=== PATIENT | male | born 1955 | race Caucasian/White ===

== ENCOUNTER 2018-08-08 23:26 | Inpatient (IN) | payer SELFPAY ==
[2018-08-08 23:27] VITALS: BP 174/96; PULSE 108; RESP 24; TEMP 38.3; O2SAT 93; BMI 33.0
--- NOTE | 2018-08-08 23:29 | ED.RN ---
NO OLD EKGS IN MUSE
[2018-08-08 23:30] VITALS: PULSE 104; RESP 24
[2018-08-08 23:38] VITALS: O2SAT 93
--- NOTE | 2018-08-08 23:41 | EKG12_ITS ---
Test Reason : CP Blood Pressure : / mmHG Vent. Rate : 100 BPM Atrial Rate : 100 BPM P-R Int : 138 ms QRS Dur : 088 ms QT Int : 378 ms P-R-T Axes : 048 004 048 degrees QTc Int : 487 ms Sinus rhythm with Premature supraventricular complexes and with occasional and consecutive Premature ventricular complexes Prolonged QT Abnormal ECG Confirmed by ADRIANA BHANDARI, ALMA DELIA ([id number]), acquisitions editor LEONCIO NAVARRO ([id number]) on 08/12/2018 3:29:47 PM Referred By: CLINT Confirmed By:ALMA DELIA WRIGHT MD
--- NOTE | 2018-08-08 23:41 | RAD_ITS ---
STUDY: X-RAY CHEST REASON FOR EXAM: Male, 63 years old. Left-sided chest and back pain TECHNIQUE: Single frontal view of the chest. COMPARISON: None. FINDINGS: The lungs are clear and expanded. There is no demonstrated pleural abnormality. Prominent cardiac silhouette. Normal mediastinum and graciela. Normal visualized pulmonary arteries. Normal visualized aortic arch and descending thoracic aorta. There are diffuse degenerative changes of the visualized thoracic spine. Normal visualized ribs, clavicles, and shoulders. There is no demonstrated abnormality of the visualized soft tissue structures of the upper abdomen. RAD/Chest 1 View (Portable) IMPRESSION: No acute pulmonary findings. Electronically Signed: Raghav Luther MD at 0:22 EST Tel , Service support ,
[2018-08-08] MEDS: Acetaminophen 500 MG Tablet 1000 MG PO (23:46)
[2018-08-08] MEDS: 0.9% Normal Saline 1,000 ML 150 ML IV (23:50)
--- NOTE | 2018-08-08 23:57 | ED.VISSUMM ---
- ER Visit Summary Date of Service: 08/08/18 Chief Complaint: Chest pain and shortness of breath History of Present Illness: The patient is a 63 M with a 2-3-week history of chest pain and shortness of breath on exertion. Patient states he initially had right lower chest pain. He currently has left lower chest pain. He does describe shortness of breath that is worse with exertion. He states he gets a buildup of phlegm that causes occasional cough. He had intermittent fevers. He states overall he is not felt well over the past 2-3 months. Physical Examination: Blood pressure is 174/96, temperature 100.9, heart rate 104, respiratory rate 24, pulse ox 93% on room air. Head neck examination is grossly unremarkable. Heart is regular rate and rhythm. Lung sounds are diminished at the bases, but no wheezes or rhonchi are noted. Abdomen is soft nontender. Strong peripheral pulses are noted throughout. Test Results: EKG is sinus at 100 with occasional PVCs. No acute ST change. Portable chest x-ray is read as no acute pulmonary findings. CBC was a white count 11.5. Chemistry studies unremarkable. Troponin negative. Lactic acid normal at 1.3. Blood cultures were sent. Patient was sent for CTA of the chest of her my read does reveal large bilateral PEs, left greater than right. It does appear that he has some fluid at the left lung base which appears darker than I would expect for typical pleural effusion. My concern his he may have some hemorrhage from his clots. Emergency Department Course and Treatment: She was given Tylenol and IV fluids. Due to continued pain he did receive a dose of morphine and Zofran. Test results were discussed with the patient. He is currently on 2 L nasal cannula after coming back from CT with an O2 sat of 88%. Patient be started on heparin bolus and drip so that it can be turned off if he does develop hemoptysis. Hospitalist is on page. Treatment Plan: [] Disposition: Admit Impression: Bilateral pulmonary emboli This note was generated with [id number] dictation software. It may contain incorrect words, spelling, and punctuation that were not noted in review of the chart prior to signing ED Disposition - Plan for ED Patient: Chief Complaint: Chest Pain Referrals: Care Physician,No Primary [Primary Care Provider] -
[2018-08-09] VITALS (20 sets, daily range): BP systolic 119–165; BP diastolic 72–96; PULSE 56–94; RESP 16–22; TEMP 36.5–37.4; O2SAT 92–97; BMI 33.0
[2018-08-09 00:08] LABS: Absolute Lymphocyte Count 2.33 X10^3/ul (0.83-4.51); Absolute Neutrophil Count 7.9 X10^3/uL (2.0-7.7); Basophil# 0.02 X10^3/uL; Basophil% 0.2 % (0-1); Eosinophil# 0.17 X10^3/uL; Eosinophils% 1.5 % (0-5); Hematocrit 41.3 % (40-54); Hemoglobin 13.6 g/dl (13.0-16.5); Lymphocyte # 2.33 X10^3/ul (4.0); Lymphocyte % 20.2 % (19-41); Mean Corp Hgb Conc 32.9 g/gl (32-36); Mean Corpuscular Hgb 29.8 pg (27.0-32.0); Mean Corpuscular Volume 90.4 fL (80-94); Mean Platelet Vol. 9.7 fl (6.2-12.0); Monocyte# 1.07 X10^3/uL; Monocyte% 9.3 % (0-10); Neutrophil # 7.86 X10^3/uL (2.7-7.7); Neutrophil % 68.3 % (47-70); Platelet Count 190 K/mm3 (150-450); RBC Distribution Width CV 12.6 % (11.6-14.6); RBC Distribution Width SD 41.1 fl (35.1-43.9); Red Blood Count 4.57 M/mm3 (4.6-6.2); White Blood Count 11.5 K/mm3 (4.4-11.0)
[2018-08-09 00:09] LABS: POSITIVE COUNT NO; POSITIVE DIFFERENTIAL NO; POSITIVE MORPHOLOGY NO
[2018-08-09 00:27] LABS: Anion Gap 9 (5-15); BUN 17 mg/dL (7-18); BUN/Creat Ratio 13.7 RATIO (10-20); Calcium,Total 8.6 mg/dL (8.5-10.1); Chloride 101 mmol/L (98-107); Creatinine, Serum 1.24 mg/dL (0.70-1.30); EST Glomerular Filtration Rate 62 mL/min (>60); Est Glom Filt Rate - Afr Amer 75 mL/min (>60); Estimated Creatinine Clearance 62.14 ml/min; Glucose 115 mg/dL (74-106); Potassium 3.9 mmol/L (3.5-5.1); Sodium Level 135 mmol/L (136-145)
--- NOTE | 2018-08-09 00:35 | CT_ITS ---
STUDY: CTA CHEST REASON FOR EXAM: Male, 63 years old. SOB and chest pain RADIATION DOSAGE (If Supplied By Facility): CTDIvol = ( 16.72 ) mGy, DLP = ( 683.81 ) mGycm TECHNIQUE: The examination was performed with the intravenous administration of 100 ml of Isovue 370 contrast material. Post-processing of the angiographic images was performed, with multiplanar reformation and 3D reconstruction. Individualized dose optimization techniques were used for this CT. COMPARISON: None. FINDINGS: Extensive bilateral pulmonary emboli are present. A saddle embolus is present as well. Prominence of the right atrium suggests some right heart strain. Normal thoracic aorta and visualized great vessels. There is no demonstrated aortic dissection. Normal heart and pericardium. Normal mediastinum. Normal hilar regions. Normal visualized trachea and bronchi. Calcified pulmonary granulomata. Left lower lobe alveolar disease and atelectasis. Evolving left lower lobe pulmonary infarct is not excluded. Left pleural effusion. Normal chest wall structures. There are degenerative changes of thoracic spine. Normal visualized upper abdomen. CT/CTA Chest W/WO Contrast IMPRESSION: Extensive bilateral pulmonary emboli are present. A saddle embolus is present as well. Prominence of the right atrium suggests some right heart strain. Left lower lobe alveolar disease and atelectasis. Evolving left lower lobe pulmonary infarct is not excluded. N.B. : The above information has been verbally conveyed by Raghav Luther MD to Salena Sifuentes MD, on 08/09/2018 02:05:33 (ET). Electronically Signed: Raghav Luther MD at 1:59 EST Tel , Service support ,
[2018-08-09] MEDS: Ondansetron 4 MG/2 ML Vial IV (00:46)
[2018-08-09] MEDS: Morphine 4 MG/ML Syringe IV (00:46)
[2018-08-09 00:56] LABS: Lactic Acid 1.3 mmol/L (0.4-2.0)
--- NOTE | 2018-08-09 01:17 | HP.PCM_ITS ---
Problem List (1) Bilateral pulmonary embolism Status: Acute (2) Elevated BP without diagnosis of hypertension Status: Acute History of Present Illness Date of Admission: 08/09/18 Chief Complaint: CHEST PAIN The patient is a 63 year old M former smoker who presented with 2 weeks history of chest pain. His chest pain started at the right side and it resolved with ibuprofen. A few days later after resolution of his right-sided chest pain he began to have left-sided chest pain. His left-sided chest pain is located under his left breast. He reported that initially he had some relief with ibuprofen but now he is not having adequate relief from the ibuprofen. He describes his pain as episodic and sharp. His pain is nonradiating. His pain can go as high as 9 to 10 on a scale of 1 to 10. His pain is increased with exertion. Associated with his symptoms of shortness of breath that increases with exertion. He reports a productive cough of clear, orange and reddish brown sputum. He thinks that his sputum might contain blood. Also reported subjective fever; diaphoresis; chills and night sweats. At emergency department while he was walking his oxygen saturation dropped to 88% for which reason he was started on oxygen per nasal cannula. At the the emergency department patient had a fever of 100.9. He had mild leukocytosis, tachycardia; tachypnea and elevated blood pressure. At emergency department CT of his chest showed bilateral PE with left sided pleural effusion. Patient denies any long time immobility; family history of blood clots; personal history of blood clot; malignancy; long distance travel; or any recent surgery. Past Medical History Past Medical History (Chronic Problems): Chronic Problems (Last Updated 08/09/18 @ 02:59 by Coy Kee MD) No previous medical history (Chronic) Medical History: Medical History (Last Updated 08/09/18 @ 02:59 by Coy Kee MD) No previous medical history (Chronic) Allergies No Known Allergies Allergy (Verified 08/08/18 23:29) Home Medications: Ambulatory Orders Medication Instructions Recorded Ibuprofen [Advil] 200 mg PO Q4H PRN PRN 08/08/18 Surgical History: - - He reported that a cyst was removed from his back. Lives: Alone Smoking Status: Former smoker - Reportedly he quit a month ago. Alcohol: Occasional - *Family History Maternal Family History: Family History (Last Updated 08/09/18 @ 03:01 by Coy Kee MD) Father Heart disease Review of Systems Constitutional: Reports: Chills, Fever. Denies: Weight Change HEENT: Denies: Head Aches, Sinus Congestion, Sinus Drainage Cardiovascular: Reports: Chest Pain. Denies: Palpitations Respiratory: Reports: Cough, Shortness of Breath, Sputum production Gastrointestinal: Denies: Abdominal Pain, Nausea, Vomiting Genitourinary: Denies: Dysuria Musculoskeletal: Reports: Leg Pain - cramp in right leg, chronic.. Denies: Joint Pain, Joint Tenderness Skin: Denies: Rash, Wounds Neurological: Denies: Numbness, Tingling, Focal weakness Psychiatric: Denies: Anxiety, Depression, Homicidal Ideations, Suicidal Ideations Hematologic/ Lymphatic: Denies: Easy Bruising, Easy Bleeding VTE Information - Inpt Only VTE Present on Admission: Yes VTE Mechan Device Prophylaxis: None VTE Pharm Prophylaxis ordered?: No Reason prophylaxis not ordered:: Treatment Not Indicated - Receiving treatment dose of heparin for PE. Patient Problems: Active and Suspected Problems (Last Updated 08/09/18 @ 02:59 by Coy Kee MD) Bilateral pulmonary embolism (Acute) Bilateral pulmonary embolism (Acute) Elevated BP without diagnosis of hypertension (Acute) - Physical Exam General: Alert, Oriented x3, Cooperative HEENT: Atraumatic, PERRLA, EOMI, Normocephalic Neck: Supple, No JVD, Negative Carotid Bruits Lungs: Clear to auscultation, Normal air movement, Tachypneic, - - Tender left chest. Cardiovascular: No murmurs, Tachycardic Abdomen: Bowel Sounds Present, Soft, Non Tender Extremities: No edema, Capillary Refill Less than 3 Seconds Skin: No rashes, No breakdown Musculoskeletal: No Tenderness to Palpation of Joints or Extremities Lymphatic: No Cervical, Supraclavicular, or Inguinal Adenopathy Neurological: Neuro grossly intact Psych/Mental Status: Normal Affect, Appropriate Vital Signs Temp Pulse Resp BP Pulse Ox 99.0 F 85 21 H 142/73 H 95 08/09/18 01:09 08/09/18 01:09 08/09/18 01:09 08/09/18 01:09 08/09/18 01:09 Oxygen Flow Rate (L/min) 2 Oxygen Delivery Method Nasal Cannula Weight: 104.3 kg Body Mass Index (BMI) 33.0 Laboratory Tests Past 24 Hrs 08/08/18 08/08/18 08/08/18 23:37 23:37 23:37 WBC 11.5 H RBC 4.57 L Hgb 13.6 Hct 41.3 MCV 90.4 MCH 29.8 MCHC 32.9 RDW 12.6 RDW Differential 41.1 Plt Count 190 MPV 9.7 Immature Gran % (Auto) 0.500 Neut % (Auto) 68.3 Lymph % (Auto) 20.2 [place] % (Auto) 9.3 Eos % (Auto) 1.5 Baso % (Auto) 0.2 Absolute Neuts (auto) 7.9 H Absolute Lymphs (auto) 2.33 Total Counted Not Reportable APTT Sodium 135 L Potassium 3.9 Chloride 101 Carbon Dioxide 25.0 Anion Gap 9 BUN 17 Creatinine 1.24 Estim Creat Clear Calc 62.14 Est GFR (MDRD) Af Amer 75 Est GFR (MDRD) Non-Af 62 BUN/Creatinine Ratio 13.7 Glucose 115 H Lactic Acid 1.3 Calcium 8.6 Troponin I < 0.015 08/08/18 23:37 WBC RBC Hgb Hct MCV MCH MCHC RDW RDW Differential Plt Count MPV Immature Gran % (Auto) Neut % (Auto) Lymph % (Auto) [place] % (Auto) Eos % (Auto) Baso % (Auto) Absolute Neuts (auto) Absolute Lymphs (auto) Total Counted APTT Pending Sodium Potassium Chloride Carbon Dioxide Anion Gap BUN Creatinine Estim Creat Clear Calc Est GFR (MDRD) Af Amer Est GFR (MDRD) Non-Af BUN/Creatinine Ratio Glucose Lactic Acid Calcium Troponin I Assessment/Plan All Active Problems (Last Updated 08/09/18 @ 02:59 by Coy Kee MD) Bilateral pulmonary embolism (Acute) Bilateral pulmonary embolism (Acute) Elevated BP without diagnosis of hypertension (Acute) The patient is a 63-year old gentleman previously healthy who presented with a 2-week history of chest pain and shortness of breath and found to have radiographic evidence of bilateral PE Acute submassive bilateral PE. Patient with radiographic evidence of: extensive bilateral pulmonary emboli are present. A saddle embolus is present as well. Prominence of the right atrium suggests some right heart strain. Left lower lobe alveolar disease and atelectasis. Evolving left lower lobe pulmonary infarct is not excluded. I independently review CT of the chest and agree with radiologist interpretation. Because of the pleural effusion which may be blood oral anticoagulation was not started at emergency department. Patient received heparin bolus and drip. We will continue heparin drip. Tylenol as needed for fever and pain. Oxycodone as needed for pain. Will order echocardiogram and bilateral venous Doppler. His chest pain is pleuritic likely from the PE. However will do cardiac enzymes to rule out coronary artery disease. Left pleural effusion Likely from PE. Cannot exclude hemothorax. Management of PE as above. SIRS Patient meets SIRS criteria with a temperature of more than 100.4; heart rate of more than 90 and respiratory rate of more than 20. He has SIRS likely because of the acute bilateral PE Vitals per unit routine. Neutrophilic Leukocytosis Likely due to Acute bilateral PE Management as above Trend CBC Elevated blood pressure without diagnosis of hypertension. His blood pressure at presentation at the ED was 174/96. However this has been trending down. His blood pressure was likely secondary to pain and anxiety. As needed pain medicine ordered. Treatment of PE as above. Will trend blood pressures. Labetalol as needed for systolic blood pressure more than 160. Tobacco abuse He reports quitting smoking about a month ago. He reported that smoking was aggravating his shortness of breath. However he re ported that his shortness of breath and chest pain started 2 weeks ago making his statement incongruent. Counselled Euvolemic hyponatremia Mild. 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 DVT prophylaxis Not indicated in the setting of patient with acute bilateral PE who has received heparin bolus, currently on heparin drip. Code Visit Inpatient E&M: 10389 Init Hosp L3
[2018-08-09] MEDS: HEPARIN/D5w 25,000 UNITS 25,000 UNITS/250 ML IV.SOLN. 15 UNITS IV (01:28)
[2018-08-09] MEDS: Heparin Injection (Vial) 5,000 UNIT/ML VIAL 8000 UNIT IV (01:28)
--- NOTE | 2018-08-09 02:07 | VDLE_ITS ---
Reason For Study: PE RIGHT LEFT GSV is normal. GSV is normal. CFV is compressible, spontaneous, phasic, CFV is compressible, spontaneous, phasic, competent and demonstrates normal competent, and demonstrates normal augmentation. augmentation. FV is non-compressible with intraluminal FV is compressible, spontaneous, phasic, echoes. competent and demonstrates normal POP V is compressible, spontaneous, phasic, augmentation. competent and demonstrates normal POP V is compressible, spontaneous, phasic, augmentation. competent and demonstrates normal T/P Trunk is compressible. augmentation. PTV is compressible. T/P Trunk is compressible. RT PerV is compressible. PTV is compressible. Procedure LT PerV is compressible. Exam performed portable in patient room. A preliminary report was called and/or faxed to U Charge nurse. Interpretation Summary No evidence for acute deep venous thrombosis bilateral lower extremities with patent and compressible bilateral great saphenous veins. Ordering Physician: Coy Kee Performed By: Avril Todd RVT
--- NOTE | 2018-08-09 02:07 | ECHOCS_ITS ---
Reason For Study: Emboli Procedure This was a 2D Doppler, Color Flow transthoracic echocardiogram. The study was technically difficult. Contrast injection was performed. Exam performed portable in patient room. Left Ventricle Normal LV size. Left ventricular systolic function is normal. The estimated ejection fraction is 65 %. Diastolic function is indeterminate. No regional wall motion abnormalities noted. Right Ventricle Normal RV size. Normal systolic function. Atria The left atrium is mildly enlarged. Normal right atrium. No doppler evidence for ASD. Mitral Valve There is no mitral annular calcification. Normal mitral valve. Trivial mitral valve insufficiency. Tricuspid Valve Normal tricuspid valve. Trivial tricuspid valve insufficiency. Right ventricular systolic pressure estimated to be 41 mmHg. Aortic Valve Trisinus/trileaflet aortic valve. Normal aortic valve. Pulmonic Valve The pulmonic valve is not well visualized. Great Vessels Normal sized aortic root. Pericardium/Pleural No pericardial effusion. Medication Definity0.2ml given slow IV push to enhance endocardial definition. MMode/2D Measurements & Calculations LVIDd: 5.0 cm IVSd: 1.2 cm Ao root diam: 3.3 cm LVIDs: 3.3 cm LVPWd: 1.3 cm RVDd: 4.2 cm FS: 33.0 % LAV(MOD-bp): 65.1 ml LVAd ap4: 33.6 cm2 SV(MOD-sp4): 65.0 ml LAV(MOD-bp) Indexed: 29.4 ml/m2 EDV(MOD-sp4): 109.4 ml LAV(MOD-sp2): 72.9 ml EDV(sp4-el): 114.9 ml LAV(MOD-sp4): 58.1 ml LVAs ap4: 18.4 cm2 ESV(MOD-sp4): 44.5 ml ESV(sp4-el): 42.3 ml EF(MOD-sp4): 59.4 % EF(sp4-el): 63.1 % SV(sp4-el): 72.5 ml LA A4 area: 21.2 cm2 LA dimension(2D): 4.2 cm RA A4 area: 16.3 cm2 Doppler Measurements & Calculations MV E max rick: 57.1 cm/sec Lat Peak E' Rick: 8.3 cm/sec Med Peak E' Rick: 7.9 cm/sec MV A max rick: 73.2 cm/sec E/E' lat: 6.9 E/E' med: 7.3 MV E/A: 0.78 Ao V2 max: 163.6 cm/sec LV V1 max: 121.4 cm/sec PA V2 max: 78.3 cm/sec Ao max P.7 mmHg LV V1 max P.9 mmHg Ao V2 mean: 116.7 cm/sec Ao mean P.0 mmHg Ao V2 VTI: 31.2 cm TR max rick: 287.1 cm/sec TR max P.0 mmHg Interpretation Summary The study was technically difficult. Contrast injection was performed. Left ventricular systolic function is normal. The estimated ejection fraction is 65 %. The left atrium is mildly enlarged. Trivial mitral valve insufficiency. Trivial tricuspid valve insufficiency. Right ventricular systolic pressure estimated to be 41 mmHg. Diastolic function is indeterminate. Ordering Physician: Coy Kee Performed By: Milka Nelson, LUC, RVT
[2018-08-09 06:46] LABS: Hematocrit 36.6 % (40-54); Hemoglobin 11.9 g/dl (13.0-16.5); Mean Corp Hgb Conc 32.5 g/gl (32-36); Mean Corpuscular Hgb 29.4 pg (27.0-32.0); Mean Corpuscular Volume 90.4 fL (80-94); Mean Platelet Vol. 9.6 fl (6.2-12.0); Platelet Count 181 K/mm3 (150-450); RBC Distribution Width CV 12.7 % (11.6-14.6); RBC Distribution Width SD 42.2 fl (35.1-43.9); Red Blood Count 4.05 M/mm3 (4.6-6.2); White Blood Count 10.1 K/mm3 (4.4-11.0)
[2018-08-09 07:01] LABS: Scan Indicated on CBC? Y/N NO
[2018-08-09 07:06] LABS: Anion Gap 8 (5-15); BUN 18 mg/dL (7-18); BUN/Creat Ratio 16.2 RATIO (10-20); Calcium,Total 8.2 mg/dL (8.5-10.1); Chloride 105 mmol/L (98-107); Creatinine, Serum 1.11 mg/dL (0.70-1.30); EST Glomerular Filtration Rate 71 mL/min (>60); Est Glom Filt Rate - Afr Amer 86 mL/min (>60); Estimated Creatinine Clearance 69.42 ml/min; Glucose 111 mg/dL (74-106); Potassium 4.1 mmol/L (3.5-5.1); Sodium Level 138 mmol/L (136-145)
[2018-08-09 08:06] LABS: Partial Thromboplast Time 117.2 Seconds (24.1-36.2)
--- NOTE | 2018-08-09 12:14 | PCM.PROGNOTE ---
Patient Problems: Active and Suspected Problems (Last Updated 08/09/18 @ 02:59 by Coy Kee MD) Bilateral pulmonary embolism (Acute) Bilateral pulmonary embolism (Acute) Elevated BP without diagnosis of hypertension (Acute) Subjective: Patient is a 63-year-old male with no significant medical history but was until recently a smoker who presented to the emergency department at [facility] on 08/09/2018 complaining of chest pain of 2 weeks duration. Walking oximetry in the emergency room on room air was 88%. Temp was 100.9 and he had a mild leukocytosis and tachycardia. CTA of the chest showed bilateral pulmonary emboli with saddle embolus and with left-sided pleural effusion. He has no risk factors. He was admitted to a monitored bed on PCU and started on a heparin infusion. He does not have a PCP and has not saeen a doctor in years. There is a FH of prostate CA in his paternal uncle. Last colonoscopy was 9 years ago and it was normal per the patient. Has nocturia at least 3 times a night. Denies hematuria. No FH of clotting disorders. no recent unexplained weight loss All events of the past 24 hours of been reviewed Current vital signs are temp 98.3, pulse rate 61, blood pressure 130/72, 94-95% on room air. All lab was personally reviewed. Serial cardiac enzymes are negative. BMP is unremarkable. He is c/o GARCIA and pain in the left lateral chest when he is moving around. He has hemoptysis today - Physical Exam General: Alert, Oriented x3, Cooperative, Well developed, Well nourished HEENT: Atraumatic, PERRLA, EOMI Neck: No JVD, Negative Carotid Bruits Lungs: Clear to auscultation Cardiovascular: Regular Rhythm, Normal S1, Normal S2, No Gallop, Tachycardic Abdomen: Bowel Sounds Present, Soft, Non Tender, Non-Distended Extremities: No edema, No Calf Tenderness Skin: No rashes, No breakdown Neurological: Cranial nerves II-XII grossly intact, Neuro grossly intact Psych/Mental Status: Normal Affect, Appropriate Vital Signs Temp Pulse Resp BP Pulse Ox 98.3 F 80 18 130/72 H 94 08/09/18 10:20 08/09/18 11:00 08/09/18 11:25 08/09/18 10:20 08/09/18 11:27 Oxygen Flow Rate (L/min) 2 Oxygen Delivery Method Room Air Weight: 229 lb 15.074 oz Body Mass Index (BMI) 33.0 Intake and Output for Last 24 Hours 08/07/18 08/08/18 08/09/18 23:59 23:59 23:59 Intake Total 80.9 / 80.9 Balance 80.9 / 80.9 Laboratory Tests Past 24 Hrs 08/08/18 08/08/18 08/08/18 23:37 23:37 23:37 WBC 11.5 H RBC 4.57 L Hgb 13.6 Hct 41.3 MCV 90.4 MCH 29.8 MCHC 32.9 RDW 12.6 RDW Differential 41.1 Plt Count 190 MPV 9.7 Immature Gran % (Auto) 0.500 Neut % (Auto) 68.3 Lymph % (Auto) 20.2 [place] % (Auto) 9.3 Eos % (Auto) 1.5 Baso % (Auto) 0.2 Absolute Neuts (auto) 7.9 H Absolute Lymphs (auto) 2.33 Total Counted Not Reportable APTT Sodium 135 L Potassium 3.9 Chloride 101 Carbon Dioxide 25.0 Anion Gap 9 BUN 17 Creatinine 1.24 Estim Creat Clear Calc 62.14 Est GFR (MDRD) Af Amer 75 Est GFR (MDRD) Non-Af 62 BUN/Creatinine Ratio 13.7 Glucose 115 H Lactic Acid 1.3 Calcium 8.6 Troponin I < 0.015 08/08/18 08/09/18 08/09/18 23:37 02:35 05:37 WBC RBC Hgb Hct MCV MCH MCHC RDW RDW Differential Plt Count MPV Immature Gran % (Auto) Neut % (Auto) Lymph % (Auto) [place] % (Auto) Eos % (Auto) Baso % (Auto) Absolute Neuts (auto) Absolute Lymphs (auto) Total Counted APTT 36.0 Sodium 138 Potassium 4.1 Chloride 105 Carbon Dioxide 25.0 Anion Gap 8 BUN 18 Creatinine 1.11 Estim Creat Clear Calc 69.42 Est GFR (MDRD) Af Amer 86 Est GFR (MDRD) Non-Af 71 BUN/Creatinine Ratio 16.2 Glucose 111 H Lactic Acid Calcium 8.2 L Troponin I < 0.015 08/09/18 08/09/18 08/09/18 05:37 05:37 07:28 WBC 10.1 RBC 4.05 L Hgb 11.9 L Hct 36.6 L MCV 90.4 MCH 29.4 MCHC 32.5 RDW 12.7 RDW Differential 42.2 Plt Count 181 MPV 9.6 Immature Gran % (Auto) Neut % (Auto) Lymph % (Auto) [place] % (Auto) Eos % (Auto) Baso % (Auto) Absolute Neuts (auto) Absolute Lymphs (auto) Total Counted APTT 117.2 H* Sodium Potassium Chloride Carbon Dioxide Anion Gap BUN Creatinine Estim Creat Clear Calc Est GFR (MDRD) Af Amer Est GFR (MDRD) Non-Af BUN/Creatinine Ratio Glucose Lactic Acid Calcium Troponin I < 0.015 Medical Necessity - Tobacco Use Smoking Status: Former smoker - Reportedly he quit a month ago. Assessment/Plan All Active Problems (Last Updated 08/09/18 @ 02:59 by Coy Kee MD) Bilateral pulmonary embolism (Acute) Bilateral pulmonary embolism (Acute) Elevated BP without diagnosis of hypertension (Acute) Impressions 1. Bilateral extensive pulmonary emboli with saddle embolus and probable pulmonary infarction-acquired hypercoagulable disorder? Possible occult malignancy? Has not had routine follow-up with a doctor in many years. Positive family history of prostate cancer and he has nocturia times at least 3. 2. Hypertension at admission and blood pressures today look good and he has not had any as needed labetalol. 3. Marijuana use - one puff on a one hitter daily 4. Left pleural effusion with left lower lobe alveolar disease. Venous ultrasounds of bilateral lower extremities in the a.m. Continue heparin drip for now -I did explain the different options for oral anticoagulants and answered his questions If stable in the AM consider transitioning to ELiquis or Xarelto Check a PSA. No masses on the chest CTA or the plain CXR I did discuss with him the possibility of an occult malignancy. I also explained that he will need to follow up with pulmonary post DC ECO tomorrow to evaluate Right heart function
[2018-08-09 14:34] LABS: Partial Thromboplast Time 52.2 Seconds (24.1-36.2)
[2018-08-09 14:46] LABS: AST(SGOT) 14 U/L (15-37); Alanine Aminotransfer ALT/SGPT 27 U/L (16-61); Albumin, Serum 2.7 g/dL (3.2-5.0); Alkaline Phosphatase 103 U/L (45-117); Bilirubin, Direct 0.21 mg/dL (0.00-0.30); Globulin 4.5 g/dL (2.2-4.2); Protein, Total 7.2 g/dL (6.4-8.2)
[2018-08-09] MEDS: Heparin Injection (Vial) 5,000 UNIT/ML VIAL IV ×2 (14:46→21:28)
[2018-08-09] MEDS: Acetaminophen 325 MG Tablet 650 MG PO (18:01)
[2018-08-09 21:00] LABS: Partial Thromboplast Time 49.4 Seconds (24.1-36.2)
[2018-08-09] MEDS: HEPARIN/D5w 25,000 UNITS 25,000 UNITS/250 ML IV.SOLN. 14 UNITS IV (21:29)
[2018-08-09] MEDS: Zolpidem Tartrate 5 MG Tablet PO (21:32)
[2018-08-10] VITALS (7 sets, daily range): BP systolic 122–134; BP diastolic 78–79; PULSE 61–79; RESP 16–17; TEMP 36.7–37.7; O2SAT 93–97
[2018-08-10 03:53] LABS: Partial Thromboplast Time 52.6 Seconds (24.1-36.2)
[2018-08-10] MEDS: Heparin Injection (Vial) 5,000 UNIT/ML VIAL IV (04:31)
--- NOTE | 2018-08-10 09:10 | CASEMGMT ---
KAYLYNN GRECO Assessment. Presentation: Pt presented to ER with shortness of breath. CT showed extensive bilateral pulmonary emboli. Started on Heparin gtt. Introduced role of CM to patient in room. He is able to participate in assessment. PCP: none. Discussed with pt who plans to start care with Dr. Kathy Taylor, , [place], [place]. KAYLYNN GRECO let pt know we would give him information re: financial assistance/cost from office. Specialists: none Preferred Pharmacy: [facility] [place], [place] Insurance: none. Pt states he is eligible for [facility] in summer this year. No insurance coverage at this time. Prescription Benefit: none LNOK: BrotherChris Living Arrangements: Lives independently. Transportation: Drives DME/HHC: none SW consult: self pay status. Financial, possible pharmacy assist. DC PLAN: Home. Plan is to transition from Heparin gtt to Eliquis or Xarelto. Savings card can be given, and pt may need pharmacy assist for medications. Erin HENSONN RN ACM
--- NOTE | 2018-08-10 09:48 | CASEMGMT ---
Addendum entered by Priscila Leal 08/10/18 10:01: SAM spoke with [facility] which is where patient would like to get his care. They do offer financial assistance for patients who qualify. They can also get a discount of 30% if they pay day of visit. She will fax SW the financial assistance application. SW will give this information to patient. Priscila RIGGS Original Note: SW spoke with patient as he is self pay. SW gave him information on [facility] and [facility]. SW also gave him information on [employer] and [facility]. Patient would like to establish care at [place]. SW will check to see if they offer financial assistance for self pay patients. Priscila RIGGS
[2018-08-10 11:02] LABS: Partial Thromboplast Time 60.8 Seconds (24.1-36.2)
--- NOTE | 2018-08-10 11:22 | CASEMGMT ---
Patient will be discharged on Eliquis. SW will likely utilize [facility] prescription assistance program for patient. SAM called [facility] and scheduled an appt for patient for WednesdayAug 19 at 11:30am. This will allow him to get a physician to assist with prescription assistance application for the Eliquis for later months. SAM will notify patient. Priscila RIGGS
--- NOTE | 2018-08-10 14:26 | PCM.PN.HOSP ---
Patient Problems: Active and Suspected Problems (Last Updated 08/09/18 @ 02:59 by Coy Kee MD) Bilateral pulmonary embolism (Acute) Bilateral pulmonary embolism (Acute) Elevated BP without diagnosis of hypertension (Acute) Subjective: no chest pain. no shortness of breath. symptoms seemed to have accelerated over the past month. no prior episode of VTE. Vitals/I&O's: Vital Signs Temp Pulse Resp BP Pulse Ox 36.9 C 73 16 132/78 H 97 08/10/18 14:17 08/10/18 14:17 08/10/18 14:17 08/10/18 14:17 08/10/18 14:17 Oxygen Flow Rate (L/min) 2 Oxygen Delivery Method Room Air Weight: 104.3 kg Body Mass Index (BMI) 33.0 Intake and Output for Last 24 Hours 08/08/18 08/09/18 08/10/18 23:59 23:59 23:59 Intake Total 1321.0 / 1321.0 783 / 783 Balance 1321.0 / 1321.0 783 / 783 General: Alert, Cooperative, No apparent distress HEENT: Atraumatic, Normocephalic Oral: Moist Mucosa, No Gingival or Mucosal Lesions/ Ulcerations Neck: No Nodes, Thyroid Normal Size and Texture Lungs: Clear to auscultation, Normal air movement, No rhonchi, No wheeze Cardiovascular: Regular rate, Regular Rhythm, Normal S1, Normal S2 Abdomen: Bowel Sounds Present, Soft, Non Tender, Non-Distended, No Hepato-splenomegaly Extremities: No Calf Tenderness, Edema - trace Skin: No rashes, No breakdown Psych/Mental Status: Normal Affect, Appropriate Laboratory Results 08/09/18 14:00: Total Bilirubin 0.50, Direct Bilirubin 0.21, AST 14 L, ALT 27, Alkaline Phosphatase 103, Total Protein 7.2, Albumin 2.7 L, Globulin 4.5 H 08/09/18 14:10: APTT 52.2 H 08/09/18 20:45: APTT 49.4 H 08/10/18 03:34: APTT 52.6 H 08/10/18 10:43: APTT 60.8 H Current Medications Acetaminophen (Tylenol) 650 mg PO Q6H PRN PRN PRN Reason: Mild Pain (scale 0-3)/T>100.7 Last Admin: 08/09/18 18:01 Dose: 650 mg Heparin Sodium (Porcine) (Heparin Na) 0 unit IV UD PRN; Protocol Last Admin: 08/10/18 04:31 Dose: 1,000 unit Heparin Sodium/Dextrose () 25,000 units in 250 mls @ 15 mls/hr IV .[id number] [facility]; Protocol Last Admin: 08/09/18 21:29 Dose: 14 mls/hr Labetalol HCl (Trandate) 10 mg IV Q4H PRN PRN PRN Reason: SBP > 160 Magnesium Hydroxide (Milk Of Magnesia) 30 ml PO DAILY PRN PRN Reason: Constipation Ondansetron HCl (Zofran) 4 mg IV Q8H PRN PRN PRN Reason: NAUSEA Oxycodone HCl (Oxyir) 5 mg PO Q4H PRN PRN PRN Reason: Moderate Pain (pain scale 4-5) Senna/Docusate Sodium (Senokot-S, Wendi-Colace) 1 tablet PO BID [facility] Last Admin: 08/10/18 10:13 Dose: Not Given Sodium Chloride () 5 - 15 ml IV UD PRN PRN Reason: SALINE FLUSH Zolpidem Tartrate (Ambien (Generic)) 5 mg PO QHS PRN PRN PRN Reason: INSOMNIA Last Admin: 08/09/18 21:32 Dose: 5 mg Medical Necessity - Tobacco Use Smoking Status: Former smoker - Reportedly he quit a month ago. Assessment/Plan All Active Problems (Last Updated 08/09/18 @ 02:59 by Coy Kee MD) Bilateral pulmonary embolism (Acute) Bilateral pulmonary embolism (Acute) Elevated BP without diagnosis of hypertension (Acute) 1. PE bilateral w saddle embolism discussed NOACs v coumadin. He agrees to Eliquis Onset may have been a month ago (possibly provoked after sitting in a tree stand for hunting) treat at least 6 months recommend follow up with Hematology in the months to come follow up echo 2. DVT RLE as above. Code Visit Inpatient E&M: 33681 Subs Hosp L2
--- NOTE | 2018-08-10 14:29 | PN_ITS ---
Patient Problems: Active and Suspected Problems (Last Updated 08/09/18 @ 02:59 by Coy Kee MD) Bilateral pulmonary embolism (Acute) Bilateral pulmonary embolism (Acute) Elevated BP without diagnosis of hypertension (Acute) Subjective: no chest pain. no shortness of breath. symptoms seemed to have accelerated over the past month. no prior episode of VTE. Vitals/I&O's: Vital Signs Temp Pulse Resp BP Pulse Ox 36.9 C 73 16 132/78 H 97 08/10/18 14:17 08/10/18 14:17 08/10/18 14:17 08/10/18 14:17 08/10/18 14:17 Oxygen Flow Rate (L/min) 2 Oxygen Delivery Method Room Air Weight: 104.3 kg Body Mass Index (BMI) 33.0 Intake and Output for Last 24 Hours 08/08/18 08/09/18 08/10/18 23:59 23:59 23:59 Intake Total 1321.0 / 1321.0 783 / 783 Balance 1321.0 / 1321.0 783 / 783 General: Alert, Cooperative, No apparent distress HEENT: Atraumatic, Normocephalic Oral: Moist Mucosa, No Gingival or Mucosal Lesions/ Ulcerations Neck: No Nodes, Thyroid Normal Size and Texture Lungs: Clear to auscultation, Normal air movement, No rhonchi, No wheeze Cardiovascular: Regular rate, Regular Rhythm, Normal S1, Normal S2 Abdomen: Bowel Sounds Present, Soft, Non Tender, Non-Distended, No Hepato- splenomegaly Extremities: No Calf Tenderness, Edema - trace Skin: No rashes, No breakdown Psych/Mental Status: Normal Affect, Appropriate Laboratory Results 08/09/18 14:00: Total Bilirubin 0.50, Direct Bilirubin 0.21, AST 14 L, ALT 27, Alkaline Phosphatase 103, Total Protein 7.2, Albumin 2.7 L, Globulin 4.5 H 08/09/18 14:10: APTT 52.2 H 08/09/18 20:45: APTT 49.4 H 08/10/18 03:34: APTT 52.6 H 08/10/18 10:43: APTT 60.8 H Current Medications Acetaminophen (Tylenol) 650 mg PO Q6H PRN PRN PRN Reason: Mild Pain (scale 0-3)/T>100.7 Last Admin: 08/09/18 18:01 Dose: 650 mg Heparin Sodium (Porcine) (Heparin Na) 0 unit IV UD PRN; Protocol Last Admin: 08/10/18 04:31 Dose: 1,000 unit Heparin Sodium/Dextrose () 25,000 units in 250 mls @ 15 mls/hr IV .[id number] [facility]; Protocol Last Admin: 08/09/18 21:29 Dose: 14 mls/hr Labetalol HCl (Trandate) 10 mg IV Q4H PRN PRN PRN Reason: SBP > 160 Magnesium Hydroxide (Milk Of Magnesia) 30 ml PO DAILY PRN PRN Reason: Constipation Ondansetron HCl (Zofran) 4 mg IV Q8H PRN PRN PRN Reason: NAUSEA Oxycodone HCl (Oxyir) 5 mg PO Q4H PRN PRN PRN Reason: Moderate Pain (pain scale 4-5) Senna/Docusate Sodium (Senokot-S, Wendi-Colace) 1 tablet PO BID [facility] Last Admin: 08/10/18 10:13 Dose: Not Given Sodium Chloride () 5 - 15 ml IV UD PRN PRN Reason: SALINE FLUSH Zolpidem Tartrate (Ambien (Generic)) 5 mg PO QHS PRN PRN PRN Reason: INSOMNIA Last Admin: 08/09/18 21:32 Dose: 5 mg Medical Necessity - Tobacco Use Smoking Status: Former smoker - Reportedly he quit a month ago. Assessment/Plan All Active Problems (Last Updated 08/09/18 @ 02:59 by Coy Kee MD) Bilateral pulmonary embolism (Acute) Bilateral pulmonary embolism (Acute) Elevated BP without diagnosis of hypertension (Acute) 1. PE * bilateral w saddle embolism * discussed NOACs v coumadin. He agrees to Eliquis * Onset may have been a month ago (possibly provoked after sitting in a tree stand for hunting) * treat at least 6 months * recommend follow up with Hematology in the months to come * follow up echo 2. DVT RLE as above. Code Visit Inpatient E&M: 38971 Subs Hosp L2
[2018-08-10] MEDS: 0.9% NaCl Peripheral Flush Adult/Peds IV (15:26)
--- NOTE | 2018-08-10 16:35 | DCINST_ITS ---
- Discharge Diagnoses Current Active Problems: Current Active and Chronic Problems (Last Updated 08/09/18 @ 02:59 by Coy Kee MD) Bilateral pulmonary embolism (Acute) Bilateral pulmonary embolism (Acute) Elevated BP without diagnosis of hypertension (Acute) No previous medical history (Chronic) You will use the following diet at home:: No restrictions Your food should be the consistency of: Regular Discharge Activity: Return to Normal Activity Call your doctor if you observe: Fever of 101 or Higher, Shortness of breath, Chest pain Allergies/Adverse Reactions: Allergies No Known Allergies Allergy (Verified 08/08/18 23:29) Medications to take at Discharge Acetaminophen [Tylenol Tablet] 650 mg PO Q6H PRN PRN tablet 08/10/18 Apixaban [Eliquis] 5 mg PO BID #75 tablet 08/10/18 The following prescriptions were given: Apixaban [Eliquis] 5 mg PO BID #75 tablet Primary Care Physician: Care Physician,No Primary [Primary Care Provider] - Test Results: Test results from this visit will be discussed in further detail at your follow- up appointment, if applicable. Please Follow Up With: [facility] When: Wednesday Please Follow Up With: Debbi Chapman MD - hematology When: 2-3 months Proposed Discharge Date: 08/10/18
--- NOTE | 2018-08-10 17:06 | PCM.DC.SUM ---
Discharge Date and Diagnosis - Problem List Patient Problems: Active and Suspected Problems (Last Updated 08/09/18 @ 02:59 by Coy Kee MD) Bilateral pulmonary embolism (Acute) Bilateral pulmonary embolism (Acute) Elevated BP without diagnosis of hypertension (Acute) Date of Admission: 08/09/18 Date of Discharge: 08/10/18 - Primary Discharge Diagnosis Active and Suspected Problems (Last Updated 08/09/18 @ 02:59 by Coy Kee MD) Bilateral pulmonary embolism (Acute) Bilateral pulmonary embolism (Acute) Elevated BP without diagnosis of hypertension (Acute) - Secondary Discharge Diagnosis Chronic Problems (Last Updated 08/09/18 @ 02:59 by Coy Kee MD) No previous medical history (Chronic) Hospital Course and Treatment Imaging Results: Clinical Impression(s) from Imaging Studies Chest X-Ray 08/08/18 23:41 IMPRESSION: No acute pulmonary findings. Electronically Signed: Raghav Luther MD at 0:22 EST Tel , Service support , Chest CTA 08/09/18 00:35 IMPRESSION: Extensive bilateral pulmonary emboli are present. A saddle embolus is present as well. Prominence of the right atrium suggests some right heart strain. Left lower lobe alveolar disease and atelectasis. Evolving left lower lobe pulmonary infarct is not excluded. N.B. : The above information has been verbally conveyed by Raghav Luther MD to Salena Sifuentes MD, on 08/09/2018 02:05:33 (ET). Electronically Signed: Raghav Luther MD at 1:59 EST Tel , Service support , Operations: None Procedures: 2-D Echocardiogram Summary of Care Provided: The patient is a 63 year old M presents with about a months history of intermittent chest pain and dyspnea on exertion. Patient was found to have bilateral pulmonary emboli with saddle embolism. Patient was also found to have a right lower extremity DVT. Is unclear, from the patient's description, if this may have been a provoked blood clot. Patient's symptoms seem to began around a hunting trip where he was up in a tree stand for extended periods of time so he could up and possibly had a provoked DVT from some immobility being in his tree stand. Patient has never had venous thromboembolic disease nor is any family history that he is aware of. Patient did have an echocardiogram that showed normal EF did show some mild pulmonary hypertension with a right jugular systolic pressure of 41 mmHg. Patient is hemodynamically stable and has been up and ambulating without any difficulties. Did discuss anticoagulation with patient and he agreed to be on Eliquis. Patient will need to at least be on that for 6 months. I advised the patient follow-up with hematology in the coming months. [] Patient Problems: Active and Suspected Problems (Last Updated 08/09/18 @ 02:59 by Coy Kee MD) Bilateral pulmonary embolism (Acute) Bilateral pulmonary embolism (Acute) Elevated BP without diagnosis of hypertension (Acute) - Physical Exam Vital Signs Temp Pulse Resp BP Pulse Ox 36.9 C 77 16 132/78 H 97 08/10/18 14:17 08/10/18 15:01 08/10/18 14:17 08/10/18 14:17 08/10/18 14:17 Oxygen Flow Rate (L/min) 2 Oxygen Delivery Method Room Air Weight: 104.3 kg Body Mass Index (BMI) 33.0 Intake and Output for Last 24 Hours 08/08/18 08/09/18 08/10/18 23:59 23:59 23:59 Intake Total 1321.0 / 1321.0 838.1 / 838.1 Balance 1321.0 / 1321.0 838.1 / 838.1 Laboratory Tests Past 24 Hrs 08/09/18 08/10/18 08/10/18 20:45 03:34 10:43 APTT 49.4 H 52.6 H 60.8 H Discharge Diet: No Restrictions Discharge Activity: Return to Normal Activity Call your doctor if you observe: Fever of 101 or Higher, Shortness of breath, Chest pain Home Medications: Medications to take at Discharge Acetaminophen [Tylenol Tablet] 650 mg PO Q6H PRN PRN tablet 08/10/18 Apixaban [Eliquis] 5 mg PO BID #75 tablet 08/10/18 Following Prescrptions Were Given to Patient: Apixaban [Eliquis] 5 mg PO BID #75 tablet Primary Care Physician: Care Physician,No Primary [Primary Care Provider] - Please Follow Up With: [facility] When: Wednesday Please Follow Up With: Debbi Chapman MD - hematology When: 2-3 months Disposition: Home Minutes spent on discharge:: 35 Patient Condition:: Good Medical Necessity - Tobacco Use Smoking Status: Former smoker - Reportedly he quit a month ago. Meaningful Use Info Meaningful Use Diagnoses (Choose all that apply): VTE - VTE Anticoag overlap given w/in hospital stay or rx'd at dc?: No Pt receive overlap for 5 days?: No Reason overlap not ordered, prescribed, or given for 5 days: Procedure Not Indicated Code Visit Inpatient E&M: 45188 Disch Hosp
--- NOTE | 2018-08-10 17:09 | DS.PCM_ITS ---
Discharge Date and Diagnosis - Problem List Patient Problems: Active and Suspected Problems (Last Updated 08/09/18 @ 02:59 by Coy Kee MD) Bilateral pulmonary embolism (Acute) Bilateral pulmonary embolism (Acute) Elevated BP without diagnosis of hypertension (Acute) Date of Admission: 08/09/18 Date of Discharge: 08/10/18 - Primary Discharge Diagnosis Active and Suspected Problems (Last Updated 08/09/18 @ 02:59 by Coy Kee MD) Bilateral pulmonary embolism (Acute) Bilateral pulmonary embolism (Acute) Elevated BP without diagnosis of hypertension (Acute) - Secondary Discharge Diagnosis Chronic Problems (Last Updated 08/09/18 @ 02:59 by Coy Kee MD) No previous medical history (Chronic) Hospital Course and Treatment Imaging Results: Clinical Impression(s) from Imaging Studies Chest X-Ray 08/08/18 23:41 IMPRESSION: No acute pulmonary findings. Electronically Signed: Raghav Luther MD at 0:22 EST Tel , Service support , Chest CTA 08/09/18 00:35 IMPRESSION: Extensive bilateral pulmonary emboli are present. A saddle embolus is present as well. Prominence of the right atrium suggests some right heart strain. Left lower lobe alveolar disease and atelectasis. Evolving left lower lobe pulmonary infarct is not excluded. N.B. : The above information has been verbally conveyed by Raghav Luther MD to Salena Sifuentes MD, on 08/09/2018 02:05:33 (ET). Electronically Signed: Raghav Luther MD at 1:59 EST Tel , Service support , Operations: None Procedures: 2-D Echocardiogram Summary of Care Provided: The patient is a 63 year old M presents with about a months history of intermittent chest pain and dyspnea on exertion. Patient was found to have bilateral pulmonary emboli with saddle embolism. Patient was also found to have a right lower extremity DVT. Is unclear, from the patient's description, if this may have been a provoked blood clot. Patient's symptoms seem to began around a hunting trip where he was up in a tree stand for extended periods of time so he could up and possibly had a provoked DVT from some immobility being in his tree stand. Patient has never had venous thromboembolic disease nor is any family history that he is aware of. Patient did have an echocardiogram that showed normal EF did show some mild pulmonary hypertension with a right jugular systolic pressure of 41 mmHg. Patient is hemodynamically stable and has been up and ambulating without any difficulties. Did discuss anticoagulation with charmaine ent and he agreed to be on Eliquis. Patient will need to at least be on that for 6 months. I advised the patient follow-up with hematology in the coming months. [] Patient Problems: Active and Suspected Problems (Last Updated 08/09/18 @ 02:59 by Coy Kee MD) Bilateral pulmonary embolism (Acute) Bilateral pulmonary embolism (Acute) Elevated BP without diagnosis of hypertension (Acute) - Physical Exam Vital Signs Temp Pulse Resp BP Pulse Ox 36.9 C 77 16 132/78 H 97 08/10/18 14:17 08/10/18 15:01 08/10/18 14:17 08/10/18 14:17 08/10/18 14:17 Oxygen Flow Rate (L/min) 2 Oxygen Delivery Method Room Air Weight: 104.3 kg Body Mass Index (BMI) 33.0 Intake and Output for Last 24 Hours 08/08/18 08/09/18 08/10/18 23:59 23:59 23:59 Intake Total 1321.0 / 1321.0 838.1 / 838.1 Balance 1321.0 / 1321.0 838.1 / 838.1 Laboratory Tests Past 24 Hrs 08/09/18 08/10/18 08/10/18 20:45 03:34 10:43 APTT 49.4 H 52.6 H 60.8 H Discharge Diet: No Restrictions Discharge Activity: Return to Normal Activity Call your doctor if you observe: Fever of 101 or Higher, Shortness of breath, Chest pain Home Medications: Medications to take at Discharge Acetaminophen [Tylenol Tablet] 650 mg PO Q6H PRN PRN tablet 08/10/18 Apixaban [Eliquis] 5 mg PO BID #75 tablet 08/10/18 Following Prescrptions Were Given to Patient: Apixaban [Eliquis] 5 mg PO BID #75 tablet Primary Care Physician: Care Physician,No Primary [Primary Care Provider] - Please Follow Up With: [facility] When: Wednesday Please Follow Up With: Debbi Chapman MD - hematology When: 2-3 months Disposition: Home Minutes spent on discharge:: 35 Patient Condition:: Good Medical Necessity - Tobacco Use Smoking Status: Former smoker - Reportedly he quit a month ago. Meaningful Use Info Meaningful Use Diagnoses (Choose all that apply): VTE - VTE Anticoag overlap given w/in hospital stay or rx'd at dc?: No Pt receive overlap for 5 days?: No Reason overlap not ordered, prescribed, or given for 5 days: Procedure Not Indicated Code Visit Inpatient E&M: 36777 Disch Hosp
--- NOTE | 2018-08-11 13:42 | CASEMGMT ---
SAM called patient as he was discharged. He said he was given a 30 day free coupon for the Eliquis so he was able to get it. SAM told him about his appt at [facility] next Wednesday. SAM also told him about the prescription assistance program application and that SAM will fax it to the 's office for him. He thanked SAM for the help. SAM spoke with Lavonne at [facility]. SAM explained situation and she told SW the fax number and they will follow up with this. SAM faxed the prescription assistance program application for Eliquis to [facility]. Priscila AWAN MSW
--- NOTE | 2018-08-11 13:58 | CASEMGMT ---
SAM mailed patient a copy of the financial assistance application for [facility] as well as their health history form for new patients. Priscila AWAN MSW
== END 2018-08-10 18:29 | disposition home or self-care (01) | DRG 176 ==
LOC: ED 23:47 → PCU 08-09 01:31
PROVIDERS: Internal Medicine; Admitting Provider Hospitalist; Emergency Provider Emergency Medicine
DX: I26.92 Saddle embolus of pulmonary artery without acute cor pulmonale (principal); I82.401 Acute embolism and thrombosis of unspecified deep veins of right lower extremity; R03.0 Elevated blood-pressure reading, without diagnosis of hypertension; I26.99 Other pulmonary embolism without acute cor pulmonale; I27.20 Pulmonary hypertension, unspecified; Z87.891 Personal history of nicotine dependence
CPT/HCPCS: 36415; 71045; 71275; 80048; 80076; 83605; 84484; 85025; 85027; 85730; 93005; 93306; 93970; 97162; 97166; 97530; 97802; 99251; 99284; J7030; Q9957; Q9967; A4216; C8929; G0463; J2405